=== PATIENT | female | born 1980 | race Caucasian/White ===

== ENCOUNTER 2025-02-09 08:41 | Outpatient (CLI) | payer BC ==
[2025-02-09 09:11] LABS: MEAN PLATELET VOLUME 7.5 FL (7.4-10.4); RED CELL DISTRIBUTION WIDTH 13.9 % (11.5-14.5)
[2025-02-09 09:30] LABS: CHOL/HDL RATIO 2.8 (0.00-4.99); CREATININE 0.55 MG/DL (0.40-0.90); LDL CHOLESTEROL 129 MG/DL (50-100); TOTAL CARBON DIOXIDE 31.1 MMOL/L (24-32); eGFR > 90 ML/MIN
[2025-02-10 13:13] LABS: CREATININE, URINE 170.0 mg/dL (Not Estab.); MICROALB/CRT, RATIO 4.0 mg/g creat (0-29); MICROALBUMIN,U,RANDOM 7.0 ug/mL (Not Estab.)
== END 2025-02-09 23:59 | disposition home or self-care (01) ==
LOC: LAB 08:41
PROVIDERS: ATTEND Family Medicine
DX: Z00.01 Encounter for general adult medical examination with abnormal findings (principal); R68.89 Other general symptoms and signs; R79.89 Other specified abnormal findings of blood chemistry; E55.9 Vitamin D deficiency, unspecified; R94.5 Abnormal results of liver function studies; R80.9 Proteinuria, unspecified; R73.01 Impaired fasting glucose
CPT/HCPCS: 36415; 80053; 80061; 82043; 82306; 82570; 83036; 84443; 85025